=== PATIENT | female | born 1965 | race Caucasian/White ===

== ENCOUNTER 2017-06-13 19:51 | Observation (INO) | payer MEDICAID ==
[2017-06-13 22:59] LABS: ADD MAN DIFF? NO
[2017-06-13 23:01] LABS: WHITE BLOOD COUNT 7.8 10^3/ul (4.8-10.8)
[2017-06-13 23:01] LABS: BASOPHILS % 0.5 % (0.0-2.0); EOSINOPHILS # 0.3 10^3/ul (0.0-0.5); EOSINOPHILS % 3.6 % (0.0-7.0); HEMOGLOBIN 7.8 g/dl (12.0-16.0); LYMPHOCYTES # 2.7 10^3/ul (0.8-2.9); LYMPHOCYTES % 34.9 % (15.0-51.0); MEAN CORPUSCULAR HEMOGLOBIN 20.2 pg (29.0-33.0); MEAN CORPUSCULAR VOLUME 67.2 fl (82.0-101.0); MEAN PLATELET VOLUME 9.7 fl (7.4-10.4); MONOCYTE # 0.6 10^3/ul (0.3-0.9); MONOCYTES % 7.4 % (0.0-11.0); NEUTROPHIL # 4.2 10^3/ul (1.6-7.5); NEUTROPHILS % 53.1 % (39.0-77.0); PLATELET COUNT 347 10^3/UL (140-415); RED BLOOD COUNT 3.87 10^6/ul (4.20-5.40); RED CELL DISTRIBUTION WIDTH 18.8 % (11.5-14.5)
[2017-06-13] MEDS: NITROGLYCERIN 2% 1 GM OINT PKT TD (23:04)
[2017-06-13] MEDS: ASPIRIN 325 MG TAB PO (23:04)
[2017-06-13 23:17] LABS: PARTIAL THROMBOPLASTIN TIME 26.4 Sec (25.0-35.0)
[2017-06-13 23:19] LABS: ANION GAP 17 (8-16); BLOOD UREA NITROGEN 12 mg/dl (7-20); CALCIUM 9.9 mg/dl (8.4-10.2); CARBON DIOXIDE 22 mmol/L (21-31); CHLORIDE 106 mmol/L (97-110); CREATININE 0.59 mg/dl (0.44-1.00); GLUCOSE 100 mg/dl (70-220); POTASSIUM 3.9 mmol/L (3.5-5.1); SODIUM 141 mmol/L (135-144)
[2017-06-13 23:36] LABS: TROPONIN-I < 0.012 ng/ml (0.00-0.12)
[2017-06-13] MEDS: IOHEXOL 350MG/ML 50 ML BTL (23:59)
[2017-06-13] MEDS: IOHEXOL 100 ML (23:59)
[2017-06-13] MEDS: SOD CHLORIDE 0.9% 100 ML (23:59)
[2017-06-14 00:06] LABS: INR 0.92; PROTIME 12.4 Sec (11.9-14.9)
[2017-06-14] MEDS: ACETAMINOPHEN 325 MG TAB PO ×2 (01:48→08:19)
[2017-06-14] MEDS ORDERED: morphine 2 MG INJ IV (02:00)
[2017-06-14] MEDS ORDERED: NITROGLYCERIN (SL) 0.4 MG TAB SL (02:00)
[2017-06-14] MEDS ORDERED: NACL 0.9% 3 ML SYG IV (02:00)
[2017-06-14] MEDS ORDERED: ONDANSETRON 4 MG TAB PO (02:00)
[2017-06-14 05:18] LABS: ADD MAN DIFF? NO
[2017-06-14 05:23] LABS: WHITE BLOOD COUNT 6.3 10^3/ul (4.8-10.8)
[2017-06-14 05:23] LABS: BASOPHILS % 0.6 % (0.0-2.0); EOSINOPHILS # 0.3 10^3/ul (0.0-0.5); EOSINOPHILS % 4.1 % (0.0-7.0); HEMATOCRIT 25.4 % (37.0-47.0); HEMOGLOBIN 7.5 g/dl (12.0-16.0); LYMPHOCYTES # 1.9 10^3/ul (0.8-2.9); MEAN CORPUSCULAR HEMOGLOBIN 19.9 pg (29.0-33.0); MEAN CORPUSCULAR HGB CONC 29.5 g/dl (32.0-37.0); MEAN CORPUSCULAR VOLUME 67.6 fl (82.0-101.0); MEAN PLATELET VOLUME 10.1 fl (7.4-10.4); MONOCYTE # 0.5 10^3/ul (0.3-0.9); MONOCYTES % 7.1 % (0.0-11.0); NEUTROPHIL # 3.6 10^3/ul (1.6-7.5); NEUTROPHILS % 57.9 % (39.0-77.0); PLATELET COUNT 329 10^3/UL (140-415); RED BLOOD COUNT 3.76 10^6/ul (4.20-5.40); RED CELL DISTRIBUTION WIDTH 18.7 % (11.5-14.5)
[2017-06-14 05:43] LABS: MAGNESIUM 1.9 mg/dl (1.7-2.5)
[2017-06-14 05:45] LABS: ALANINE AMINOTRANSFERASE 23 IU/L (13-69); ALBUMIN 3.8 g/dl (3.3-4.9); ALKALINE PHOSPHATASE 66 IU/L (42-121); ANION GAP 14 (8-16); ASPARTATE AMINO TRANSFERASE 22 IU/L (15-46); BILIRUBIN,INDIRECT 0.1 mg/dl (0-1.1); BILIRUBIN,TOTAL 0.1 mg/dl (0.2-1.3); BLOOD UREA NITROGEN 10 mg/dl (7-20); CALCIUM 9.8 mg/dl (8.4-10.2); CARBON DIOXIDE 24 mmol/L (21-31); CHLORIDE 107 mmol/L (97-110); CREATININE 0.51 mg/dl (0.44-1.00); GLUCOSE 161 mg/dl (70-220); POTASSIUM 4.3 mmol/L (3.5-5.1); SODIUM 141 mmol/L (135-144); TOTAL PROTEIN 6.5 g/dl (6.1-8.1)
[2017-06-14 05:46] LABS: CHOL/HDL RATIO 2.1 RATIO; CREATINE KINASE 133 IU/L (23-200); HDL CHOLESTEROL 63 mg/dl (37-92); LDL CHOLESTEROL,CALCULATED 57 mg/dl; TRIGLYCERIDES 74 mg/dl (0-149)
[2017-06-14 05:46] LABS: CHOLESTEROL 135 mg/dl (100-200)
[2017-06-14 05:58] LABS: HEMOGLOBIN A1C 6.7 % (0-5.9)
[2017-06-14 05:59] LABS: CK INDEX 1.1; CK-MB 1.52 ng/ml (0.0-2.4)
[2017-06-14 06:00] LABS: TROPONIN-I < 0.012 ng/ml (0.00-0.12)
[2017-06-14] MEDS ORDERED: KETOROLAC 30 MG INJ IV (08:00)
[2017-06-14 11:15] LABS: IRON 29 ug/dl (35-150)
[2017-06-14 11:24] LABS: % IRON SATURATION 7 % SAT (22-52); TOTAL IRON BINDING CAPACITY 412 ug/dl (241-421)
[2017-06-14 11:35] LABS: CREATINE KINASE 112 IU/L (23-200)
[2017-06-14 11:46] LABS: CK INDEX 0.9; CK-MB 1.06 ng/ml (0.0-2.4)
[2017-06-14 11:47] LABS: TROPONIN-I < 0.012 ng/ml (0.00-0.12)
[2017-06-14 11:51] LABS: FERRITIN 3.9 ng/ml (6.2-137.0)
[2017-06-14] MEDS: SOD FERRIC GLUC COMPLX 125 MG in SOD CHLORIDE 0.9% 100 ML IVPB (13:42)
== END 2017-06-14 15:04 | disposition home or self-care (01) ==
LOC: MS3 06-14 00:57 → E/R 19:51
DX: R07.89 Other chest pain (principal); D50.9 Iron deficiency anemia, unspecified; E11.9 Type 2 diabetes mellitus without complications; Z79.84 Long term (current) use of oral hypoglycemic drugs; E66.9 Obesity, unspecified; Z68.35 Body mass index [BMI] 35.0-35.9, adult; F17.200 Nicotine dependence, unspecified, uncomplicated
CPT/HCPCS: 36415; 71045; 71275; 80048; 80053; 80061; 81025; 82550; 82553; 82728; 83036; 83540; 83735; 84443; 84484; 85025; 85610; 85730; 93005; 93306; 99285-25

== ENCOUNTER 2018-09-08 10:30 | Emergency (ER) | payer SELFPAY, MEDICAID ==
[2018-09-08] MEDS: CEFTRIAXONE 2 GM INJ IM (11:57)
[2018-09-08] MEDS: LIDOCAINE 1% (MPF) 5 ML VIAL INJ (11:58)
== END 2018-09-08 12:32 | disposition home or self-care (01) ==
LOC: FTE 10:30
DX: S91.152A Open bite of left great toe without damage to nail, initial encounter (principal); E11.9 Type 2 diabetes mellitus without complications; F17.210 Nicotine dependence, cigarettes, uncomplicated; W54.0XXA Bitten by dog, initial encounter; Y92.9 Unspecified place or not applicable; Z79.84 Long term (current) use of oral hypoglycemic drugs
CPT/HCPCS: 96372; 99284-25